=== PATIENT | female | born 1965 | race Caucasian/White ===

== ENCOUNTER → 2020-07-12 13:17 | Outpatient (CLI) | payer OTHER, SELFPAY ==
--- NOTE | ~2020-07-12 | MMUS_ITS ---
EXAMINATION: MM diagnostic omar BI w paulo, US breast BI limited HISTORY: Probably benign right breast mass TECHNIQUE: Craniocaudal, mediolateral, and mediolateral oblique 3-D tomosynthesis images of the breas ts were performed and synthetic 2-D images were generated. CAD analysis was submitted and interpreted . High resolution limited bilateral breast ultrasound was performed. COMPARISON: 07/04/2019, 11/15/2018, 05/21/2018, 05/10/2018, 05/04/2017 BREAST PARENCHYMAL COMPOSITION: There are scattered areas of fibroglandular density. FINDINGS: MAMMOGRAPHIC FINDINGS: Right breast: The previously described asymmetry in the middle third of the lower-outer breast persis ts but is less conspicuous than on prior mammograms. There has been no suspicious interval change. No suspicious mass, calcification, or architectural distortion are identified. Left breast: There is a 10 mm obscured low density mass in the anterior third of the outer breast at the 2:00 location 4 cm from the nipple. No suspicious architectural distortion or calcification are i dentified. ULTRASOUND: Right breast: There is a 5 mm x 2 mm oval, circumscribed, parallel mass with hypoechoic center and ec hogenic rim at the 12:00 location 4.5 cm from the nipple with no internal vascularity or posterior ac oustic features. This is decreased in size since the comparison examination. Left breast: There is a 7 mm x 5 mm oval, circumscribed, parallel, complex cystic and solid mass at t he 1:00 location 4 cm from the nipple with posterior acoustic enhancement and no internal vascularity with sonographic features suggestive of a cluster of microcysts. IMPRESSION: 1. Benign right breast mass and probably benign left breast mass. 2. Recommend 6 month follow-up left diagnostic mammogram and ultrasound. BI-RADS category 3, probably benign findings. Reviewed, dictated and finalized at location A. E SUPERVISOR IMPRESSION: 1. Benign right breast mass and probably benign left breast mass. 2. Recommend 6 month follow-up left diagnostic mammogram and ultrasound. BI-RADS category 3, probably benign findings.
== END ==
PROVIDERS: PCP Family Medicine; Visit Provider Obstetrics & Gynecology
DX: R92.8 Other abnormal and inconclusive findings on diagnostic imaging of breast (principal)
CPT/HCPCS: 76642; 77062; 77066; G0279

== ENCOUNTER → 2021-01-14 08:19 | Outpatient (CLI) | payer OTHER, SELFPAY ==
--- NOTE | ~2021-01-14 | MMUS_ITS ---
EXAMINATION: MM diagnostic omar LT w paulo, US breast LT limited HISTORY: Six-month follow-up for probably benign left breast mass TECHNIQUE: Craniocaudal, mediolateral, and mediolateral oblique 3-D tomosynthesis images of the left breast were performed and synthetic 2-D images were generated. CAD analysis was submitted and interpr eted. High resolution limited left breast ultrasound was performed. COMPARISON: 07/12/2020, 07/04/2019, 05/10/2018, 05/04/2017 BREAST PARENCHYMAL COMPOSITION: There are scattered areas of fibroglandular density. FINDINGS: MAMMOGRAPHIC FINDINGS: The previously described left breast mass is no longer identified. There has been no suspicious inter dagmar change. ULTRASOUND: There is a 5 mm x 3 mm oval, circumscribed, parallel, hypoechoic mass with no posterior features or i nternal vascularity at the 1:00 location 4 cm from the nipple which has decreased in size, consistent with a benign finding. IMPRESSION: 1. Cyst or clustered microcysts of the left breast with decrease in size, consistent with a benign fi nding. No mammographic or sonographic evidence of malignancy. 2. Recommend routine screening mammography, due in six months. BI-RADS Category 2: Benign finding(s). Reviewed, dictated and finalized at location A. IMPRESSION: 1. Cyst or clustered microcysts of the left breast with decrease in size, consi stent with a benign finding. No mammographic or sonographic evidence of maligna ncy. 2. Recommend routine screening mammography, due in six months. BI-RADS Category 2: Benign finding(s).
== END ==
PROVIDERS: Visit Provider Obstetrics & Gynecology
DX: R92.8 Other abnormal and inconclusive findings on diagnostic imaging of breast (principal)
CPT/HCPCS: 76642; 77061; 77065; G0279

== ENCOUNTER → 2021-06-14 12:38 | Outpatient (CLI) | payer OTHER, SELFPAY ==
--- NOTE | ~2021-06-14 | MM_ITS ---
EXAMINATION: MM screening [facility] BI w paulo HISTORY: Screening TECHNIQUE: Craniocaudal and mediolateral oblique 3-D tomosynthesis images were obtained and synthetic 2-D images were generated. CAD analysis was submitted and interpreted. COMPARISON: Comparison to multiple prior studies sequentially, with oldest reviewed study dated 04/07. BREAST PARENCHYMAL COMPOSITION: Breast composed of scattered areas of fibroglandular density. FINDINGS: There is no evidence of suspicious mass, calcification, or architectural distortion to sugg est malignancy in either breast. There has been no suspicious interval change. IMPRESSION: 1. No mammographic evidence of malignancy. 2. Recommend routine screening mammography in one year. BI-RADS Category 1: Negative Reviewed, dictated and finalized at location A. NICAL ASST
== END ==
PROVIDERS: Visit Provider Obstetrics & Gynecology
DX: Z12.31 Encounter for screening mammogram for malignant neoplasm of breast (principal)
CPT/HCPCS: 77063; 77067

== ENCOUNTER 2021-06-20 14:50 | Emergency (ER) | payer OTHER, SELFPAY ==
[2021-06-20] VITALS (19 sets, daily range): BP systolic 136–201; BP diastolic 72–97; PULSE 69–84; RESP 11–21; TEMP 36.2–37; O2SAT 94–100
--- NOTE | ~2021-06-20 | XR_ITS ---
EXAMINATION: XR chest 2V 06/20/2021 15:37 INDICATION: Hypertension. Dizziness. PROCEDURE: 2 view chest COMPARISON: No prior studies for comparison. FINDINGS: The lungs are clear. The cardiomediastinal silhouette is within normal limits. There are no pleural effusions. There is no pneumothorax suspected. There are scattered calcified granulomas of the lung parenchyma. IMPRESSION: 1: NO ACUTE CARDIOPULMONARY DISEASE. Reviewed, dictated and finalized at location A. STANT NURSE MANAGER
--- NOTE | ~2021-06-20 | CT_ITS ---
EXAMINATION: CT brain wo con DATE: 06/20/2021 17:06 INDICATION: Dizziness. Hypertension. TECHNIQUE: Computed tomography (CT) of the head was performed without intravenous contrast. The dose- length product was 605.33 mGy-cm. Automated exposure control and iterative reconstruction technique w ere employed. COMPARISON: No prior studies for comparison. FINDINGS: There is focal area of hyperdensity just to the right of the interhemispheric fissure, axia l image 37, consistent with hemorrhage which may be parenchymal or focal subarachnoid. No significant mass effect. No ventriculomegaly or midline shift. No ventriculomegaly or midline shift. Basilar cis terns are patent. IMPRESSION: 1. Focal hyperdensity right parietal lobe just lateral to the interhemispheric fissure, consistent wi th hemorrhage, most likely parenchymal or subarachnoid. Dr. Dheeraj Valenzuela discussed with Dr. Nicolle Rojo MD at 06/20/2021 17:17 CORRESPONDENCE ANALYST. Reviewed, dictated and finalized at location A. ESPONDENCE ANALYST IMPRESSION: 1. Focal hyperdensity right parietal lobe just lateral to the interhemispheric fissure, consistent with hemorrhage, most likely parenchymal or subarachnoid. Dr. Dheeraj Valenzuela discussed with Dr. Nicolle Rojo MD at 06/20/2021 17:17 CORRESPONDENCE ANALYST.
--- NOTE | 2021-06-20 14:51 | ECG_ITS ---
Measurements Intervals [place] Rate: 74 P: 19 GA: 163 QRS: -40 QRSD: 89 T: 18 QT: 389 QTc: 433 Interpretive Statements SINUS RHYTHM LEFT AXIS DEVIATION POOR R WAVE PROGRESSION, ANTERIOR LEADS BORDERLINE T WAVE ABNORMALITY- ANTERIOR LEADS BORDERLINE ECG Electronically Signed On 06-20-2021 15:50:58 DIGESTION OPERATOR by Nam Avitia D.O.
[2021-06-20 15:13] LABS: Basophils Absolute Auto 0.1 K/mm3 (0.0-0.1); Basophils Percent Auto 0.9 % (0.2-1.2); Eosinophils Absolute Auto 0.1 K/mm3 (0-0.3); Eosinophils Percent Auto 1.7 % (0-4.4); Hematocrit 45.7 % (37.0-47.0); Hemoglobin 15.4 g/dL (12.0-15.0); Immature Granulocyte Absolute 0.02 K/mm3 (0.00-0.031); Immature Granulocyte Percent A 0.2 % (0-0.5); Lymphocytes Absolute Auto 1.61 K/mm3 (0.9-3.2); Lymphocytes Percent Auto 19.8 % (18.3-44.2); Mean Corpuscular HGB Conc 33.7 g/dl (32-36); Mean Corpuscular Hemoglobin 30.3 pg (26-34); Mean Platelet Volume 10.7 fl (7.4-10.4); Monocytes Absolute Auto 0.4 K/mm3 (0.1-0.6); Monocytes Percent Auto 4.7 % (2.6-8.5); Neutrophils Absolute Auto 5.9 K/mm3 (1.3-6.7); Neutrophils Percent Auto 72.7 % (45.5-73.1); Platelet Count Result 305 k/mm3 (150-375); Red Blood Count 5.08 M/mm3 (4.2-5.4); Red Cell Distribution Width 12.9 % (11.5-14.5); White Blood Count 8.1 K/mm3 (4.5-10.0)
[2021-06-20 15:22] LABS: Prothrombin Time 13.5 Seconds (11.1-14.7)
[2021-06-20 15:23] LABS: Alanine Aminotransferase 20 U/L (4-35); Albumin Level 5.1 g/dL (3.5-5.1); Alkaline Phosphatase 73 U/L (38-126); Anion Gap 8 mmol/L (8-16); Aspartate Amino Transferase 27 U/L (14-36); Bilirubin,Total 0.6 mg/dL (0.2-1.3); Blood Urea Nitrogen 13 mg/dL (7-17); Calcium 9.7 mg/dL (8.4-10.2); Carbon Dioxide 27 mmol/L (22-30); Chloride 103 mmol/L (98-107); Estimated CRCL calculation 93 ml/min; Estimated Glomerular Filt Rate > 60; Glucose 115 mg/dL (65-110); Lipase 64 U/L (23-300); Potassium 4.1 mmol/L (3.4-5.0); Sodium 138 mmol/L (137-145)
[2021-06-20 15:33] LABS: Troponin I < 0.012 ng/mL (0.000-0.034)
--- NOTE | 2021-06-20 16:07 | ED.DIZZY ---
HPI - Dizziness General Chief Complaint: Dizziness Stated Complaint: high blood pressure Time Seen by Provider: 06/20/21 16:06 Source: patient Mode of arrival: ambulatory Limitations: no limitations History of Present Illness HPI Narrative: The patient is a 56 yo female with a history of HTN, HLD, presenting for evaluation of dizziness. Patient states dizziness began around 10 AM this morning and then resolved. Patient states the dizziness with nausea then recurred around 1 PM. Patient states she was seen by her PCP on Thursday of this week, with elevated systolic blood pressure. Patient states that this morning, she was feeling unsteady and dizzy. She reported epigastric and chest pain with radiation to the left jaw. Patient reports bilateral arm tingling. Pt denies radiation of chest pain. She reports nausea. Denies dyspnea. No neck pain, back pain, or flank pain. No acute onset of ripping/tearing pain. Dizziness and chest pain resolves with rest. No recent surgery or recent travel. Pt states that she eats and her symptoms worsen. Pt taking doxycyline for sinusitis she reports. Also states that she has a history of vertigo but this feels different than her typical vertigo. Related Data Home Medications Medication Instructions Recorded Confirmed meclizine 25 mg tablet 25 mg PO QID tablet 06/17/21 Allergies Allergy/AdvReac Type Severity Reaction Status Date / Time Penicillins Allergy Intermediate HIVES, RASH Verified 06/20/21 16:20 Sulfa (Sulfonamide Allergy Intermediate HIVES, RASH Verified 06/20/21 16:20 Antibiotics) tetracycline Allergy Intermediate HIVES, RASH Verified 06/20/21 16:20 blue dye Allergy Unknown RASH Verified 06/20/21 16:20 hydrocodone Allergy Unknown RASH, HIVES Verified 06/20/21 16:20 oxycodone Allergy Unknown RASH Verified 06/20/21 16:20 tramadol Allergy Rash Verified 06/20/21 16:20 Review of Systems Review of Systems: CONSTITUTIONAL: Denies fever, chills, or sweats. EYES: Denies visual changes, redness, or discharge. ENT: Denies rhinorrhea, congestion, sore throat, or otalgia. CARDIOVASCULAR: Reports chest pain, she is reporting palpitations RESPIRATORY: Denies cough or dyspnea. GASTROINTESTINAL: Reports epigastric pain, reports nausea GENITOURINARY: Denies dysuria or hematuria. SKIN: Denies rash or itching. MUSCULOSKELETAL: Denies back pain, joint pain, or myalgia. NEUROLOGIC: Denies headache, reports bilateral arm tingling, reports dizziness PMFSH Past Medical History Medical History Arthritis Asthma Trigger finger right second and third digits Surgical History Surgical History H/O dilation and curettage 1998 H/O hand surgery left, 2013, Dr. Jackson H/O: hysterectomy (~2017) History of hip replacement right, 2017, Dr. Jackson Left, 2018, Dr. 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 EYES: 2+ PERRLA and EOMI. ENT: Nares clear, no rhinorrhea or epistaxis. Mucous membranes moist. NECK: Supple. CHEST: No respiratory distress, breathing even and non labored HEART: Regular rate, sinus rhythm ABDOMEN:Non distended, non tender EXTREMITIES: Normal range of motion. No edema. SKIN: Warm,
[2021-06-20 17:45] LABS: Add Urine Microscopic? YES; Appearance Urine Cloudy (Clear); Bacteria Urine Trace /hpf; Bilirubin Urine Negative (Negative); Blood Urine Negative (Negative); Color Urine Yellow (Yellow); Glucose Urine UA Negative (Negative); Ketones Urine Negative (Negative); Leukocyte Esterase Ur Negative LEU/UL (Negative); Mucus Urine Rare /lpf; Nitrate Urine Negative (Negative); Protein Urine Negative (Negative); Specific Grav Ur 1.011 (1.001-1.035); Squamous Epithelial Cell Urine Few /hpf (Few); Urobilinogen Urine Negative mg/dL (<2.0); WBC Urine 0-3 /hpf
[2021-06-20] MEDS: SODIUM CHLORIDE 0.9% IV 1,000 ML 999 ML IV CONT (17:49)
[2021-06-20] MEDS: ONDANSETRON INJ 4 MG/2 ML VIAL IV PUSH (17:50)
[2021-06-20] MEDS: MECLIZINE HCL 25 MG TABLET PO (17:50)
--- NOTE | 2021-06-20 18:01 | PC.NURSE ---
report called to johnny Ramirez RN at [facility] ER
--- NOTE | 2021-06-20 18:08 | PC.NURSE ---
called lab to push troponin to the front of line, attempting to have results prior to EMS discharge. Pt remains oriented x4, no stroke deficits noted.
[2021-06-20 18:31] LABS: Troponin I < 0.012 ng/mL (0.000-0.034)
== END 2021-06-20 18:20 | disposition short-term general hospital (02) ==
PROVIDERS: Emergency Medicine; Emergency Provider Emergency Medicine; PCP Internal Medicine
DX: I61.8 Other nontraumatic intracerebral hemorrhage (principal); R42 Dizziness and giddiness; R07.9 Chest pain, unspecified; I10 Essential (primary) hypertension; E78.5 Hyperlipidemia, unspecified
CPT/HCPCS: 36415; 70450; 71046; 80053; 81001; 83690; 84484; 85025; 85610; 85730; 93005; 96361; 96374; 99291; A9270; J2405; J7030

== ENCOUNTER 2021-11-21 08:11 | Outpatient (CLI) | payer OTHER, SELFPAY ==
--- NOTE | 2021-11-25 11:41 | WPDHOMESLEEP ---
Sleep Study - Home Unattended Date of Study: 11/21/21 Ordering Provider: Kyra Rojas NP Interpreting Provider: Keren Don, DO Home Sleep Study Type: Watch PAT Height: 1.69 m Weight: 115.666 kg Body Mass Index: 40.5 Neck Circumference (inches): 15 [place]: 5 Reason for Sleep Study Multiple nighttime awakenings. Sleep History The patient is a 56-year-old female with hypertension, asthma and anxiety that had a sleep study ordered by her primary care for evaluation multiple nighttime awakenings. Patient denies awakening from sleep short of breath. She denies awakening at night with heartburn, belching or cough. She occasionally snores but is rarely loudly enough that others complain. She constantly has trouble sleeping when she has a cold. She occasionally wakes up gasping for air throughout the night. She occasionally has breathing problems at night observed by herself or others. She denies sweating excessively at night. She constantly has heart palpitations or irregular heartbeats during the night. She denies falling asleep during the day and while driving. She denies sleep paralysis and cataplexy. She denies having trouble at school or work due to sleepiness. She occasionally experiences vivid dreamlike scenes upon awakening or falling asleep. She frequently feels afraid of going to sleep. He occasionally has nightmares. She denies remembering her dreams. He rarely has thoughts racing through her mind. She feels he frequently has he occasionally has tension. She occasionally notices parts of her body jerk. She denies kicking during the night. She rarely has crawling and aching feelings in her legs as well as leg pain during the night. She denies grinding her teeth during sleep but occasionally awakens with morning jaw pain. She is constantly bothered by pain during the day and frequently awakened by pain during the night. She frequently wakes up feeling stiff in the morning. She constantly wakes up with sore achy muscles. She occasionally wakes with pain in the neck, spine and other joints. She goes to bed at 10:00 p.m. on both weekdays and weekends. It takes her over an hour to fall asleep. She wakes up 3 times throughout the night to urinate. She is usually able to fall back asleep immediately. She wakes up at 7:00 a.m. on both weekdays and weekends. She typically gets 6-7 hours of sleep per night. She will stay in bed for a few minutes after waking up in the morning. She currently lives with her in 21-year-old daughter. She does not consume any caffeinated beverages within 2 hours of bedtime. She does not engage in physical exercise before bedtime. She will watch television before falling asleep. She does not take naps in the afternoon or the evening. She will drink had 1-2 caffeinated beverages throughout the day. She will drink 1 alcoholic beverage per day. She denies tobacco and recreational drug use. [facility] Past Medical History Medical History (Updated 11/25/21 @ 11:53 by Keren Don DO) Arthritis Asthma ELISABETH (obstructive sleep apnea) Trigger finger right second and third digits Surgical History Surgical History H/O dilation and curettage 1998 H/O hand surgery left, 2013, Dr. Jackson H/O: hysterectomy (~2017) History of hip replacement right, 2017, Dr. Jackson Left, 2018, Dr. 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
[2021-11-25 11:48] VITALS: BMI 40.5
== END 2021-11-22 14:20 | disposition home or self-care (01) ==
LOC: ANHCSM 08:12
PROVIDERS: PCP Internal Medicine; Visit Provider Nurse Practitioner
DX: G47.00 Insomnia, unspecified (principal); G47.33 Obstructive sleep apnea (adult) (pediatric)
CPT/HCPCS: 95800

== ENCOUNTER → 2022-06-18 14:16 | Outpatient (CLI) | payer OTHER, SELFPAY ==
--- NOTE | ~2022-06-18 | MM_ITS ---
EXAMINATION: MM screening omar BI w paulo HISTORY: Screening TECHNIQUE: Craniocaudal and mediolateral oblique 3-D tomosynthesis images were obtained and synthetic 2-D images were generated. CAD analysis was submitted and interpreted. COMPARISON: Comparison to multiple prior studies sequentially, with oldest reviewed study dated 11/2017. BREAST PARENCHYMAL COMPOSITION: There are scattered areas of fibroglandular density. FINDINGS: There is no evidence of suspicious mass, calcification, or architectural distortion to sugg est malignancy in either breast. There has been no suspicious interval change. IMPRESSION: 1. No mammographic evidence of malignancy. 2. Recommend routine screening mammography in one year. BI-RADS Category 1: Negative Reviewed, dictated and finalized at location B. INE LOUNGE RECEPTIONIST
== END ==
PROVIDERS: PCP Internal Medicine; Visit Provider Obstetrics & Gynecology
DX: Z12.31 Encounter for screening mammogram for malignant neoplasm of breast (principal)
CPT/HCPCS: 77063; 77067

== ENCOUNTER 2022-08-04 09:59 | Outpatient (CLI) | payer OTHER, SELFPAY ==
[2022-08-04 18:43] LABS: Basophils Absolute Auto 0.1 K/mm3 (0.0-0.1); Basophils Percent Auto 1.2 % (0.2-1.2); Eosinophils Absolute Auto 0.3 K/mm3 (0-0.3); Hematocrit 43.2 % (37.0-47.0); Hemoglobin 13.9 g/dL (12.0-15.0); Immature Granulocyte Absolute 0.02 K/mm3 (0.00-0.031); Immature Granulocyte Percent A 0.3 % (0-0.5); Lymphocytes Absolute Auto 1.92 K/mm3 (0.9-3.2); Lymphocytes Percent Auto 29.4 % (18.3-44.2); Mean Corpuscular HGB Conc 32.2 g/dl (32-36); Mean Corpuscular Hemoglobin 30.1 pg (26-34); Mean Corpuscular Volume 93.5 fl (80-100); Mean Platelet Volume 12.1 fl (7.4-10.4); Monocytes Absolute Auto 0.4 K/mm3 (0.1-0.6); Monocytes Percent Auto 6.7 % (2.6-8.5); Neutrophils Absolute Auto 3.8 K/mm3 (1.3-6.7); Neutrophils Percent Auto 58.4 % (45.5-73.1); Platelet Count Result 252 k/mm3 (150-375); Red Blood Count 4.62 M/mm3 (4.2-5.4); Red Cell Distribution Width 13.8 % (11.5-14.5); White Blood Count 6.5 K/mm3 (4.5-10.0)
[2022-08-04 19:03] LABS: LDL Cholesterol Direct 133 mg/dL
[2022-08-04 19:41] LABS: Alanine Aminotransferase 18 U/L (6-35); Albumin Level 4.2 g/dL (3.5-5.1); Alkaline Phosphatase 67 U/L (38-126); Anion Gap 7 mmol/L (8-16); Aspartate Amino Transferase 21 U/L (14-36); Bilirubin,Total 0.7 mg/dL (0.2-1.3); Blood Urea Nitrogen 12 mg/dL (7-17); Calcium 9.3 mg/dL (8.4-10.2); Carbon Dioxide 30 mmol/L (22-30); Chloride 104 mmol/L (98-107); Cholesterol 238 mg/dL (0-200); Estimated Glomerular Filt Rate > 60; Glucose 81 mg/dL (65-110); HDL Direct 38 mg/dL; Potassium 4.3 mmol/L (3.4-5.0); Sodium 141 mmol/L (137-145); Triglycerides 178 mg/dL (<150)
== END 2022-08-04 10:00 | disposition home or self-care (01) ==
LOC: ANHGOSHLAB 10:00
PROVIDERS: PCP Internal Medicine; Visit Provider Nurse Practitioner
DX: Z13.29 Encounter for screening for other suspected endocrine disorder (principal); Z13.220 Encounter for screening for lipoid disorders
CPT/HCPCS: 36415; 80053; 80061; 85025

== ENCOUNTER → 2022-08-04 10:37 | Outpatient (CLI) | payer OTHER, SELFPAY ==
--- NOTE | ~2022-08-04 | XR_ITS ---
EXAMINATION:XR_[id number]_CR DATE: 08/04/2022 11:35 INDICATION: Dizziness and neck stiffness TECHNIQUE: AP, lateral, and odontoid views of the cervical spine are provided. COMPARISON: None FINDINGS: Alignment is normal. The odontoid process is intact. No fracture is identified. There is mi ld loss of intervertebral disc space height at C5-6 and C6-7. Small degenerative osteophytes project from the anterior endplates of multiple vertebral bodies. The vertebral body heights are normal. Ther e is moderate bilateral facet joint osteoarthritis at C5-6. Prevertebral soft tissues are normal. IMPRESSION: 1. Mild cervical spondylosis without acute findings. Reviewed, dictated and finalized at location B. ENGINEER
== END ==
PROVIDERS: PCP Internal Medicine; Visit Provider Nurse Practitioner
DX: H81.10 Benign paroxysmal vertigo, unspecified ear (principal); R26.89 Other abnormalities of gait and mobility; M47.892 Other spondylosis, cervical region
CPT/HCPCS: 72040

== ENCOUNTER → 2022-09-10 12:31 | Outpatient (CLI) | payer OTHER, SELFPAY ==
--- NOTE | ~2022-09-10 | MR_ITS ---
EXAMINATION: MR cervical spine wo/w con DATE: 09/10/2022 13:29 INDICATION: Dizziness. Neck stiffness. TECHNIQUE: Magnetic resonance imaging (MRI) of the cervical spine was performed without and with 20 m L MultiHance intravenous contrast. COMPARISON: Cervical spine radiographs 08/04/2022 FINDINGS: Bone alignment is normal. There is mild chronic anterior wedging of C5 vertebral body. Ther e is moderately decreased disc height at C5-C6 and mildly decreased disc height at C6-C7. The spinal cord signal intensity is normal. The following disc levels are specifically discussed: C2-C3: The disc does not extend beyond the endplate margin. There is no uncovertebral joint osteoarth ritis. There is mild bilateral facet joint osteoarthritis. There is no neural foraminal stenosis. The re is no central canal stenosis. C3-C4: There is a central protrusion. There is mild bilateral uncovertebral joint osteoarthritis. The re is mild right and severe left facet joint osteoarthritis. There is mild left neural foraminal sten osis. There is mild central canal stenosis. C4-C5: The disc is mildly bulging. There is no uncovertebral joint osteoarthritis. There is no facet joint osteoarthritis. There is no neural foraminal stenosis. There is mild central canal stenosis. C5-C6: The disc is bulging. There is severe bilateral uncovertebral joint osteoarthritis. There is no facet joint osteoarthritis. There is moderate bilateral neural foraminal stenosis. There is mild shahana tral canal stenosis. C6-C7: There is a central extrusion. There is mild bilateral uncovertebral joint osteoarthritis. Ther e is no facet joint osteoarthritis. There is no neural foraminal stenosis. There is mild central kelly l stenosis. C7-T1: The disc does not extend beyond the endplate margin. There is no uncovertebral joint osteoarth ritis. There is severe bilateral facet joint osteoarthritis. There is mild bilateral neural foraminal stenosis. There is no central canal stenosis. IMPRESSION: 1. Moderate cervical spondylosis. Reviewed, dictated and finalized at location A. ICAL SECURITY ENGINEER
== END ==
PROVIDERS: PCP Internal Medicine; Visit Provider Nurse Practitioner
DX: R42 Dizziness and giddiness (principal); M47.892 Other spondylosis, cervical region
CPT/HCPCS: 72156; A9577

== ENCOUNTER 2022-12-15 11:21 | Emergency (ER) | payer OTHER, SELFPAY ==
[2022-12-15 11:34] VITALS: BP 150/87; PULSE 70; RESP 16; TEMP 37.2; O2SAT 100
[2022-12-15 11:37] VITALS: BP 150/87; PULSE 70; RESP 16; TEMP 37.2; O2SAT 100
--- NOTE | 2022-12-15 11:40 | ED.GENADULT ---
HPI - General Adult General Chief complaint: Dizziness Stated complaint: dizziness,rt foot numb,pinch nerve rt shoulder Time Seen by Provider: 12/15/22 11:40 Source: patient, RN notes reviewed and old records reviewed Mode of arrival: ambulatory Limitations: no limitations History of Present Illness HPI narrative: 57-year-old female presents to the [facility] with complaints of dizziness, right foot numbness and a pinched nerve in the right shoulder, states that started after they [facility] a [facility]. States the injection was done on , describes it as being very painful since then had some numbness or tingling in her legs as well as her arm. States the dizziness is her normal has been going on for 2 years they thought it was due to the pinched nerves in her neck. Patient was told by the pain clinic to follow-up with primary to care to provider and get another MRI. Unable to get in with the primary care provider today, states that she called. patient walked in with a normal gait denies any shortness of breath, abdominal pain. Denies any loss retention of bowel or bladder. No saddle anesthesia. Onset (ago): day(s) (4) Related Data Home Medications Medication Instructions Recorded Confirmed gabapentin 100 mg capsule 100 mg PO QHS 08/04/22 12/15/22 alprazolam 0.25 mg tablet 0.25 mg PO DIRECTED 12/15/22 12/15/22 Allergies Allergy/AdvReac Type Severity Reaction Status Date / Time blue dye Allergy Unknown RASH Verified 12/15/22 11:35 hydrocodone Allergy Unknown RASH, HIVES Verified 12/15/22 11:35 oxycodone Allergy Unknown RASH Verified 12/15/22 11:35 Penicillins Allergy Unknown Skin Verified 12/15/22 11:35 Reaction Sulfa (Sulfonamide Allergy Unknown Skin Verified 12/15/22 11:35 Antibiotics) Reaction tetracycline Allergy Unknown Skin Verified 12/15/22 11:35 Reaction tramadol Allergy Rash Verified 12/15/22 11:35 Review of Systems Review of Systems: All systems reviewed & are unremarkable except as noted in HPI and below Constitutional: Constitutional: Reports no additional constitutional complaints Eyes: Eyes: Reports no additional eye complaints ENT: Reports system reviewed and no additional complaints, except as documented Cardiovascular: Cardiovascular: Reports no additional cardiovascular complaints, Denies chest pain and Denies dyspnea Respiratory: Respiratory: Reports no additional respiratory complaints, Denies chest congestion, Denies cough and Denies dyspnea Gastrointestinal: Gastrointestinal: Reports no additional gastrointestinal complaints, Denies abdominal pain, Denies nausea and Denies vomiting Musculoskeletal: Musculoskeletal: Reports no additional musculoskeletal complaints Integumentary/Breasts: Skin/Breast: Reports system reviewed and no additional complaints, except as docu Neurologic: Reports as per HPI Psychiatric: Psychiatric: Reports no additional psychiatric complaints Allergic/Immunologic: Allergic/Immunologic: Reports no additional allergic/immunologic complaints [facility] Past Medical History Medical History Arthritis Asthma ELISABETH (obstructive sleep apnea) Trigger finger right second and third digits Surgical History Surgical History H/O dilation and curettage 1998 H/O hand surgery left, 2013, Dr. Jackson H/O: hysterectomy (~2017) History of hip replacement right, 2017, Dr. Jackson Left, 2018, Dr. Jackson Family History Family History Father Hypertension Family history of elevated blood lipids Family history of osteoarthritis Mother Hypertension Family history of allergic disorder Asthma Patient's mother is in good health Sibling Asthma Family history of allergic disorder Hypertension Patient's sister is in good health Father Hypertension
== END 2022-12-15 11:58 | disposition home or self-care (01) ==
PROVIDERS: Emergency Provider Nurse Practitioner; PCP Internal Medicine
DX: R42 Dizziness and giddiness (principal); M19.90 Unspecified osteoarthritis, unspecified site; J45.909 Unspecified asthma, uncomplicated; Z96.643 Presence of artificial hip joint, bilateral
CPT/HCPCS: 99213; G0463

== ENCOUNTER → 2023-07-13 10:04 | Outpatient (CLI) | payer OTHER, SELFPAY ==
--- NOTE | ~2023-07-13 | XR_ITS ---
Lumbosacral Spine: AP and lateral views Clinical History: radiculopathy Findings: The normal lordotic curve is maintained. The vertebral bodies and posterior elements are i ntact. The intervertebral disc spaces are preserved. There is mild to moderate facet arthropathy thr oughout the lumbar spine. The sacroiliac joints are normally outlined. Bilateral hip arthroplasties a re present. Impression: Facet arthropathy, as above. Reviewed, dictated and finalized at location M. PRESSER Impression: Facet arthropathy, as above.
== END ==
PROVIDERS: PCP Nurse Practitioner; Visit Provider Nurse Practitioner
DX: M54.16 Radiculopathy, lumbar region (principal)
CPT/HCPCS: 72100

== ENCOUNTER 2023-08-11 13:50 | Outpatient (CLI) | payer OTHER, SELFPAY ==
--- NOTE | 2023-08-11 14:00 | NEURO_ITS ---
Impression: # Complains of numbness of right lower extremity. No history of diabetes or back surgery. # Normal Nerve Conduction Study including F-waves. # Normal needle/EMG exam. # Clinical correlation recommended; Higher involvement cannot be ruled out. Nerve Conduction Studies Anti Sensory Summary Table Stim Site NR Peak (ms) P-T Amp (?V) Site1 Site2 Delta-P (ms) Dist (cm) Rashaad (m/s) Right Saphenous Anti Sensory (Ant Med Mall) 14cm 3.5 18.9 14cm Ant Med Mall 3.5 0.0 Right Sup Fibular Anti Sensory (Ant Lat Mall) 14 cm 3.5 14.0 14 cm Ant Lat Mall 3.5 16.0 46 Right Sural Anti Sensory (Lat Mall) Calf 3.6 19.5 Calf Lat Mall 3.6 16.0 44 Motor Summary Table Stim Site NR Onset (ms) O-P Amp (mV) Site1 Site2 Delta-0 (ms) Dist (cm) Rashaad (m/s) Right Peroneal Motor (Vastus Med) Ankle 3.2 4.0 Popit Ankle 8.4 42.0 50 Popit 11.6 4.3 Right Tibial Motor (Abd Ni Brev) Ankle 3.8 0.8 Knee Ankle 8.9 42.0 47 Knee 12.7 1.6 F Wave Studies NR F-Lat (ms) L-R F-Lat (ms) Right Peroneal (Mrkrs) (EDB) 46.72 Right Tibial (Mrkrs) (Abd Hallucis) 47.57 EMG Side Muscle Nerve Root Ins Act Fibs Amp Dur Recrt Comment Right AntTibialis Dp Br Fibular L4-5 Nml Nml Nml Nml Nml Right Gastroc Tibial S1-2 Nml Nml Nml Nml Nml Right Fibularis Long Sup Br Fibular L5-S1 Nml Nml Nml Nml Nml Right Flex Dig Long Tibial L5-S2 Nml Nml Nml Nml Nml Right Ext Dig Brev Dp Br Fibular L5, S1 Nml Nml Nml Nml Nml MTDD
== END 2023-08-11 13:51 | disposition home or self-care (01) ==
LOC: ANHNEURO 13:51
PROVIDERS: PCP Nurse Practitioner; Visit Provider Nurse Practitioner
DX: M54.17 Radiculopathy, lumbosacral region (principal)
CPT/HCPCS: 95886; 95909

== ENCOUNTER → 2023-09-03 15:08 | Outpatient (CLI) | payer OTHER, SELFPAY ==
--- NOTE | ~2023-09-03 | MM_ITS ---
EXAMINATION: MM screening omar BI w paulo HISTORY: Screening TECHNIQUE: Craniocaudal and mediolateral oblique 3-D tomosynthesis images were obtained and synthetic 2-D images were generated. CAD analysis was submitted and interpreted. COMPARISON: Comparison to multiple prior studies sequentially, with oldest reviewed study dated 06/07. BREAST PARENCHYMAL COMPOSITION: There are scattered areas of fibroglandular density. FINDINGS: There is no evidence of suspicious mass, calcification, or architectural distortion to sugg est malignancy in either breast. There has been no suspicious interval change. IMPRESSION: 1. No mammographic evidence of malignancy. 2. Recommend routine screening mammography in one year. BI-RADS Category 1: Negative Reviewed, dictated and finalized at location A. 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
== END ==
PROVIDERS: PCP Obstetrics & Gynecology; Visit Provider Obstetrics & Gynecology
DX: Z12.31 Encounter for screening mammogram for malignant neoplasm of breast (principal)
CPT/HCPCS: 77063; 77067

== ENCOUNTER 2023-10-07 14:27 | Outpatient (CLI) | payer OTHER, SELFPAY ==
--- NOTE | ~2023-10-07 | XR_ITS ---
XR chest 2V DATE: 10/07/2023 14:38 INDICATION: Cough, congestion for 2 weeks. History of asthma. Nonsmoker. TECHNIQUE: PA and lateral views COMPARISON: 06/20/2021 2 view chest FINDINGS: Heart size is within upper normal range. No hilar or mediastinal enlargement. No pulmonary infiltrate or consolidation, pleural effusion or pulmonary vascular congestion or pneumothorax. There is degenerative spurring of the thoracic spine. IMPRESSION: No active pulmonary disease Reviewed, dictated and finalized at location B. IMPRESSION: No active pulmonary disease
== END 2023-10-07 14:28 ==
PROVIDERS: PCP Internal Medicine; Visit Provider Nurse Practitioner
DX: R05.9 Cough, unspecified (principal)
CPT/HCPCS: 71046

== ENCOUNTER 2023-10-20 11:44 | Outpatient (CLI) | payer OTHER, SELFPAY ==
--- NOTE | ~2023-10-20 | CT_ITS ---
Clinical Indication: Shortness of breath CT Scan of the Chest with Contrast: Technique: Contiguous sections were acquired throughout the chest after intravenous administration of 75 cc of Omnipaque 350. Dose reduction technique was used on this scan by utilizing automated exposu re control and iterative reconstruction technique. The dose-length product (DLP) was 696.12 mGy-cm. Findings: There is no evidence of any significant mediastinal, hilar or axillary lymphadenopathy. There is no f illing defect in the pulmonary arterial tree to suggest pulmonary embolus. There is no evidence of ao rtic dissection or aneurysm. There is no evidence of pleural or pericardial effusion. The lungs are clear. No pulmonary nodules or infiltrates are noted. Images through the upper abdomen reveal no abnormalities. Impression: No evidence of pulmonary embolus, aortic dissection, or aortic aneurysm. Clear lungs. Reviewed, dictated and finalized at [facility]. Impression: No evidence of pulmonary embolus, aortic dissection, or aortic aneurysm. Clear lungs.
[2023-10-20 12:00] LABS: Estimated Glomerular Filt Rate > 60
== END 2023-10-20 11:45 ==
LOC: MICIMG 11:45
PROVIDERS: PCP Nurse Practitioner; Visit Provider Nurse Practitioner
DX: R06.02 Shortness of breath (principal); R05.9 Cough, unspecified
CPT/HCPCS: 71260; Q9967

== ENCOUNTER 2023-10-28 10:12 | Outpatient (CLI) | payer OTHER, SELFPAY ==
--- NOTE | 2023-10-28 17:09 | WPDPFTINT ---
PFT Procedure Performed PFT Procedure Performed Spirometry with Pre/Post Bronchodilator Plethysmography (Lung Vol) Diffusing Cap (DLCO) Flow Vol Loop PFT Interpretation This is a pulmonary function test with pre and post-bronchodilator spirometry, plethysmography and diffusing capacity. The test was performed and results interpreted in accordance with the 2019 and 2005 ATS/ERS Task Force guidelines respectively using the Global Lung Function Initiative-2012 reference equations. Patient demonstrated good effort and cooperation. Reproducibility criteria were met. The quality of the pre bronchodilator spirometry maneuver was Grade A and post bronchodilator spirometry maneuver was Grade A. Findings: Spirometry: There is decreased maximal expiratory airflow at all lung volumes with concave expiratory flow tracing. The contour the inspiratory flow tracing is normal. The pre bronchodilator FVC is 2.98 L, 86% predicted. The pre bronchodilator FEV1 is 1.79 L, 65% predicted. The pre bronchodilator FEV1: FVC ratio 60%. post bronchodilator FVC is 2.98 L, representing no change. The post bronchodilator FEV1 is 1.90 L, representing a 6% increase. The post bronchodilator FEV1: FVC ratio 64%. Plethysmography: The total lung capacity is 4.54 L, 85% predicted. The functional residual capacity is 2.44 L, 80% predicted. The residual volume is 1.56 L, 76% predicted. Diffusing capacity: The diffusing capacity unadjusted for hemoglobin and carboxyhemoglobin is 19.5, 86% predicted. The diffusing capacity adjusted for alveolar volume is 4.90, 112% predicted. Impression: There is a moderate obstructive abnormality. There is no significant improvement after inhaling a single dose of albuterol. The lung volumes are normal. The diffusing capacity is normal. There are no prior studies for comparison
== END 2023-10-28 10:13 | disposition home or self-care (01) ==
LOC: ANHPFT 10:14
PROVIDERS: PCP Nurse Practitioner; Visit Provider Nurse Practitioner
DX: R06.02 Shortness of breath (principal); J45.909 Unspecified asthma, uncomplicated; R94.2 Abnormal results of pulmonary function studies
CPT/HCPCS: 94060; 94726; 94729

== ENCOUNTER 2023-12-21 09:43 | Outpatient (CLI) | payer OTHER, SELFPAY ==
--- NOTE | ~2023-12-21 | MR_ITS ---
EXAMINATION: MR cervical spine wo con DATE: 12/21/2023 11:02 INDICATION: Neck pain after epidural injection. TECHNIQUE: Magnetic resonance imaging (MRI) of the cervical spine was performed without intravenous c ontrast. COMPARISON: Cervical spine MRI 09/10/2022 FINDINGS: There is mild kyphosis of cervical spine. Vertebral body heights are normal. There is mildl y decreased disc height at C5-C6 and moderately decreased disc height at C6-C7. There is increased T2 -weighted signal intensity in the spinal cord on the left from C7 to at least T1, consistent with mye lomalacia. The following disc levels are specifically discussed: C2-C3: The disc does not extend beyond the endplate margin. There is no uncovertebral joint osteoarth ritis. There is mild bilateral facet joint osteoarthritis. There is no neural foraminal stenosis. The re is no central canal stenosis. C3-C4: The disc does not extend beyond the endplate margin. There is mild bilateral uncovertebral ellis nt osteoarthritis. There is mild right and severe left facet joint osteoarthritis. There is mild bila teral neural foraminal stenosis. There is no central canal stenosis. C4-C5: The disc does not extend beyond the endplate margin. There is mild left uncovertebral joint os teoarthritis. There is no facet joint osteoarthritis. There is no neural foraminal stenosis. There is no central canal stenosis. C5-C6: The disc is bulging. There is severe bilateral uncovertebral joint osteoarthritis. There is no facet joint osteoarthritis. There is mild bilateral neural foraminal stenosis. There is mild central canal stenosis. C6-C7: The disc is bulging. There is mild bilateral uncovertebral joint osteoarthritis. There is mild bilateral facet joint osteoarthritis. There is mild bilateral neural foraminal stenosis. There is mi ld central canal stenosis. C7-T1: The disc does not extend beyond the endplate margin. There is no uncovertebral joint osteoarth ritis. There is severe bilateral facet joint osteoarthritis. There is mild bilateral neural foraminal stenosis. There is no central canal stenosis. IMPRESSION: 1. Myelomalacia from C7 to at least T1, new from 09/10/2022. 2. Moderate cervical spondylosis, stable from 09/10/2022. Reviewed, dictated and finalized at location E.
--- NOTE | ~2023-12-21 | MR_ITS ---
EXAMINATION: MR lumbar spine wo con DATE: 12/21/2023 11:02 INDICATION: Right lower extremity burning pain. TECHNIQUE: Magnetic resonance imaging (MRI) of the lumbar spine was performed without intravenous con trast. Sequences included sagittal T2-weighted FSE, sagittal T2-weighted FS FSE, sagittal T1-weighted FSE, and axial T2-weighted FSE. COMPARISON: None FINDINGS: There is 9 degrees dextrocurvature of lumbar spine. There is 3 mm retrolisthesis of L2 on L 3 and L3 on L4. There is mild chronic anterior wedging of T11 and T12 vertebral bodies. There is raphael rely decreased disc height at L3-L4, mildly decreased disc height at L4-L5, and severely decreased di sc height at L5-S1. The distal spinal cord signal intensity is normal. The conus medullaris is at L1. The following disc levels are specifically discussed: L1-L2: The disc is bulging. There is severe right and moderate left facet joint osteoarthritis. There is mild bilateral neural foraminal stenosis. There is mild central canal stenosis. L2-L3: The disc is bulging with superimposed central extrusion. There is severe right and moderate le ft facet joint osteoarthritis. There is mild bilateral neural foraminal stenosis. There is mild centr al canal stenosis. L3-L4: The disc is bulging and has an annular fissure. There is mild right and severe left facet join t osteoarthritis. There is mild right and moderate left neural foraminal stenosis. There is mild cent ral canal stenosis. L4-L5: The disc is bulging and has an annular fissure. There is mild bilateral facet joint osteoarthr itis. There is mild bilateral neural foraminal stenosis. There is mild central canal stenosis. L5-S1: The disc is bulging and has an annular fissure. There is severe right and mild left facet join t osteoarthritis. There is mild bilateral neural foraminal stenosis. There is mild central canal sten osis. IMPRESSION: 1. Severe lumbar spondylosis. Reviewed, dictated and finalized at location E.
== END 2023-12-21 09:44 ==
PROVIDERS: PCP Nurse Practitioner; Visit Provider Student in an Organized Health Care Education/Training Program
DX: G62.9 Polyneuropathy, unspecified (principal); M48.02 Spinal stenosis, cervical region; M47.892 Other spondylosis, cervical region; M47.896 Other spondylosis, lumbar region
CPT/HCPCS: 72141; 72148

== ENCOUNTER 2024-07-16 11:32 | Emergency (ER) | payer OTHER, SELFPAY ==
--- NOTE | ~2024-07-16 | XR_ITS ---
XR chest 2V DATE: 07/16/2024 12:51 INDICATION: Chest pressure TECHNIQUE: PA and lateral views COMPARISON: 10/20/2023 CT chest /09/2023 2 view chest FINDINGS: Normal heart size. No hilar or mediastinal enlargement. No pulmonary infiltrate or consolidation, pleural effusion or pulmonary vascular congestion or pneumo thorax is detected. There is degenerative spurring of the thoracic spine. IMPRESSION: No active cardiopulmonary disease Reviewed, dictated and finalized at location A. [facility] [employer]
--- NOTE | 2024-07-16 11:35 | ECG_ITS ---
Test Date: 2024-07-16 11:44:47 Measurements Intervals [place] Rate: 85 P: 40 [place]: 160 QRS: -59 QRSD: 85 T: 10 QT: 354 QTc: 423 Interpretive Statements SINUS RHYTHM S1-S2-S3 PATTERN, CONSISTENT WITH PULMONARY DISEASE, RVH, OR NORMAL VARIANT LEFT ANTERIOR FASCICULAR BLOCK [QRS AXIS <= -45, QR IN I, RS IN II] POSSIBLE ANTERIOR MYOCARDIAL INFARCTION , PROBABLY OLD [30 ms Q WAVE IN V3/V4, OR R < 0.2 mV IN V4] ABNORMAL ECG No previous ECG available for comparison Electronically Signed On 07-16-2024 17:38:09 [employer] WORK[employer] by Werner Rowell M.D.
[2024-07-16 11:53] VITALS: BP 128/69; PULSE 89; RESP 17; TEMP 36.8; O2SAT 98
[2024-07-16 12:06] LABS: Basophils Absolute Auto 0.1 K/mm3 (0.0-0.1); Basophils Percent Auto 0.8 % (0.2-1.2); Eosinophils Absolute Auto 0.1 K/mm3 (0-0.3); Eosinophils Percent Auto 0.8 % (0-4.4); Hematocrit 44.6 % (37.0-47.0); Immature Granulocyte Absolute 0.03 K/mm3 (0.00-0.031); Immature Granulocyte Percent A 0.3 % (0-0.5); Lymphocytes Absolute Auto 1.38 K/mm3 (0.9-3.2); Lymphocytes Percent Auto 14.6 % (18.3-44.2); Mean Corpuscular HGB Conc 33.6 g/dl (32-36); Mean Corpuscular Hemoglobin 30.2 pg (26-34); Mean Corpuscular Volume 89.7 fl (80-100); Mean Platelet Volume 10.7 fl (7.4-10.4); Monocytes Absolute Auto 0.6 K/mm3 (0.1-0.6); Neutrophils Absolute Auto 7.3 K/mm3 (1.3-6.7); Neutrophils Percent Auto 77.5 % (45.5-73.1); Platelet Count Result 303 k/mm3 (150-375); Red Blood Count 4.97 M/mm3 (4.2-5.4); Red Cell Distribution Width 13.8 % (11.5-14.5); White Blood Count 9.5 K/mm3 (4.5-10.0)
[2024-07-16 12:26] LABS: Alanine Aminotransferase 23 U/L (6-35); Albumin Level 4.5 g/dL (3.5-5.1); Alkaline Phosphatase 72 U/L (38-126); Anion Gap 11 mmol/L (4-12); Aspartate Amino Transferase 24 U/L (14-36); Bilirubin,Total 0.7 mg/dL (0.2-1.3); Blood Urea Nitrogen 11 mg/dL (7-17); Calcium 9.7 mg/dL (8.4-10.2); Carbon Dioxide 24 mmol/L (22-30); Chloride 104 mmol/L (98-107); Estimated CRCL calculation 98 ml/min; Estimated Glomerular Filt Rate > 60; Glucose 112 mg/dL (65-110); INR 1.1; Lipase 46 U/L (23-300); Prothrombin Time 14.2 Seconds (11.1-14.7); Sodium 139 mmol/L (137-145)
[2024-07-16 12:38] LABS: Troponin I < 0.012 ng/mL (0.000-0.034)
--- NOTE | 2024-07-16 15:19 | ED.CHESTPAIN ---
HPI - Chest Pain General Chief Complaint: Chest Pain <Brianne Barba PA-C - Last Filed: 07/17/24 16:13> Stated Complaint: ELEVATED BP,CHEST PRESSURE,DIZZY SINCE LAST HS <Brianne Barba PA-C - Last Filed: 07/17/24 16:13> Time Seen by Provider: 07/16/24 15:19 <Brianne Barba PA-C - Last Filed: 07/17/24 16:13> Focused HPI: This is a 59 year old female that presents to the ER for dizziness (lightheadedness). Reports associated nausea, palpitations. Reports ongoing since last night. Reports her blood pressure was elevated as well. She took an extra dose of her blood pressure medication (Amlodipine) last night and this morning as well. Reports some chest pressure/burning pain. Denies shortness of breath or lower extremity edema. GENERAL: Well-appearing, well-nourished, and in no acute distress. HEAD: Normocephalic, atraumatic. CHEST: Clear to auscultation. ?No respiratory distress. HEART: Regular rate and rhythm.? NEURO: ?Alert and oriented x3. Patient screened in triage and initial orders placed.? ?Additional care and disposition to be based upon?diagnostic testing and treatment. <Brianne Barba PA-C - Last Filed: 07/17/24 16:13> History of Present Illness HPI narrative: Agree with the HPI narrative as above <Nick Fall MD - Last Filed: 07/16/24 21:13> Related Data Home Medications: Home Medications ?Medication ?Instructions ?Recorded ?Confirmed ?Last Taken ?Type albuterol sulfate 90 mcg/actuation 1 inh inhalation Q6-8H PRN 11/04/23 03/30/24 Unknown History aerosol inhaler estradiol 0.01% (0.1 mg/gram) 1 appful vaginal DAILY 06/07/24 06/07/24 Unknown History vaginal cream gabapentin 600 mg tablet 600 mg PO DAILY 06/07/24 06/07/24 Unknown History <rBianne Barba PA-C - Last Filed: 07/17/24 16:13> Allergies/Adverse Reactions: Allergies Allergy/AdvReac Type Severity Reaction Status Date / Time blue dye Allergy Unknown RASH Verified 07/16/24 15:53 hydrocodone Allergy Unknown RASH, HIVES Verified 07/16/24 15:53 oxycodone Allergy Unknown RASH Verified 07/16/24 15:53 Penicillins Allergy Unknown Skin Verified 07/16/24 15:53 Reaction Sulfa (Sulfonamide Allergy Unknown Skin Verified 07/16/24 15:53 Antibiotics) Reaction tetracycline Allergy Unknown Skin Verified 07/16/24 15:53 Reaction tramadol Allergy Rash Verified 07/16/24 15:53 <Brianne Barba PA-C - Last Filed: 07/17/24 16:13> Review of Systems Review of Systems: As reviewed above <Nick Fall MD - Last Filed: 07/16/24 21:13> [facility] Past Medical History Medical History: Medical History ELISABETH (obstructive sleep apnea) Trigger finger right second and third digits Arthritis Asthma <Brianne Barba PA-C - Last Filed: 07/17/24 16:13> Surgical History Surgical History: Surgical History History of surgery on wrist H/O: hysterectomy (~2016) H/O dilation and curettage 1999 History of hip replacement right, 2017, Dr. Jackson Left, 2018, Dr. Jackson H/O hand surgery left, 2013, Dr. Jackson <Brianne Barba PA-C - Last Filed: 07/17/24 16:13> Family History Family History: Family History Father Hypertension Family history of elevated blood lipids Family history of osteoarthritis Mother Hypertension Family history of allergic disorder Asthma Patient's mother is in good health Sibling Asthma Family history of allergic disorder Hypertension Patient's sister is in good health Father Hypertension Mother Hypertension Thyroid disorder Sibling Asthma Sibling Asthma Other Depression <Brianne Barba PA-C - Last Filed: 07/17/24 16:13> Social History Social History: Social History Social History: Caffeine-coffee/tea daily Smoking status: Never smoker Second hand tobacco smoke exposure: No Alcohol intake: current Drinks per week: 7 Alcohol use details: wine/hard liquor Substance use: never Substance use type: does not use Current Housing: Decline to Answer Concerned About Future Housing: Decline to Answer Difficulty Paying Gas/Electric Bills: Decline to Answer Difficulty Paying for Meds: Decline to Answer Currently Unemployed: Decline to Answer Education: Decline to Answer Difficulty w/ Childcare or Family Care: Decline to Answer Living arrangements: with family Occupation/Education: retired 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 Mucous membranes moist. NECK: Supple. CHEST: [Clear to auscultation. No respiratory distress.] HEART: [Regular rate and rhythm]. No murmur heard. [Normal peripheral pulses.] ABDOMEN: [Soft, nondistended], [nontender], [No rigidity or guarding] EXTREMITIES: Normal range of motion. [No edema.] SKIN: Warm, dry, no rash. NEURO: [No focal deficits]. Alert and oriented [x3.] PSYCH: [Normal mood and affect.] <Nick Fall MD - Last Filed: 07/16/24 21:13> Course Vital Signs Vital signs: Vital Signs Temperature 98.3 F 07/16/24 11:53 Pulse Rate 89 07/16/24 11:53 Respiratory Rate 17 07/16/24 11:53 Blood Pressure 128/69 07/16/24 11:53 Pulse Oximetry 98 07/16/24 11:53 Oxygen Delivery Room Air 07/16/24 11:53 Temperature 98.3 F 07/16/24 11:53 Pulse Rate 67 07/16/24 17:38 Respiratory Rate 15 07/16/24 17:38 Blood Pressure 151/82 H 07/16/24 17:38 Pulse Oximetry 95 07/16/24 17:38 Oxygen Delivery Room Air 07/16/24 15:50 <Brianne Barba PA-C - Last Filed: 07/17/24 16:13> Vital Signs Temperature 98.3 F 07/16/24 11:53 Pulse Rate 89 07/16/24 11:53 Respiratory Rate 17 07/16/24 11:53 Blood Pressure 128/69 07/16/24 11:53 Pulse Oximetry 98 07/16/24 11:53 Oxygen Delivery Room Air 07/16/24 11:53 Temperature 98.3 F 07/16/24 11:53 Pulse Rate 67 07/16/24 17:38 Respiratory Rate 15 07/16/24 17:38 Blood Pressure 151/82 H 07/16/24 17:38 Pulse Oximetry 95 07/16/24 17:38 Oxygen Delivery Room Air 07/16/24 15:50 <Nick Fall MD - Last Filed: 07/16/24 21:13> MDM - Chest Pain MDM Narrative Medical decision making narrative: 59-year-old female with history of chronic hypertension on amlodipine therapy presenting to the emergency department with vague complaints. Patient states that she had a head pressure, dizziness and nauseousness that have since resolved. On my examination patient has no symptoms whatsoever, denies any fever, chills, chest pain, chest pressure, difficulty breathing. She is currently on Tamiflu as her daughter has influenza A. Patient is afebrile. She otherwise appears well, has strong symmetric pulses in all limbs, clear breath sounds throughout, no complaints at this time. Cardiac workup was ordered given her risk factors and elevated blood pressure readings at home. Workup shows no leukocytosis or anemia. Troponin is negative x2. Electrolytes within normal limits, normal renal and hepatic function panel. Glucose normal 112. Chest x-ray shows no acute process. EKGs are nonischemic, show pulmonary pattern of disease but no acute process. Patient presently is asymptomatic, has reassuring workup and stable for discharge with regular primary care provider follow-up. We discussed the need for outpatient titration of her blood pressure medications and she verbalized understanding and close follow-up. Patient was also given strict return precautions. <Nick Fall MD - Last Filed: 07/16/24 21:13> Medical Records Data Attestation: I reviewed the patient's medical records. <Nick Fall MD - Last Filed: 07/16/24 21:13> Lab Data Attestation: I reviewed the patient's lab results. <Nick Fall MD - Last Filed: 07/16/24 21:13> Result diagrams: 07/16/24 12:02 07/16/24 12:02 <Brianne Barba PA-C - Last Filed: 07/17/24 16:13> Labs: Lab Results 07/16/24 07/16/24 Range/Units 12:02 15:44 WBC 9.5 (4.5-10.0) K/mm3 RBC 4.97 (4.2-5.4) M/mm3 Hgb 15.0 (12.0-15.0) g/dL Hct 44.6 (37.0-47.0) % MCV 89.7 (80-100) fl MCH 30.2 (26-34) pg MCHC 33.6 (32-36) g/dl RDW 13.8 (11.5-14.5) % Plt Count 303 (150-375) k/mm3 MPV 10.7 H (7.4-10.4) fl Immature Gran % (Auto) 0.3 (0-0.5) % Neut % (Auto) 77.5 H (45.5-73.1) % Lymph % (Auto) 14.6 L (18.3-44.2) % [place] % (Auto) 6.0 (2.6-8.5) % Eos % (Auto) 0.8 (0-4.4) % Baso % (Auto) 0.8 (0.2-1.2) % Lymph # (Auto) 1.38 (0.9-3.2) K/mm3 [place] # (Auto) 0.6 (0.1-0.6) K/mm3 Eos # (Auto) 0.1 (0-0.3) K/mm3 Baso # (Auto) 0.1 (0.0-0.1) K/mm3 Abs Immat Gran (auto) 0.03 (0.00-0.031) K/mm3 Absolute Neuts (auto) 7.3 H (1.3-6.7) K/mm3 Absolute Nucleated RBC 0.000 (0.0-0.012) K/mm3 Nucleated RBC % 0.0 (0.0-0.2) % PT 14.2 (11.1-14.7) Seconds INR 1.1 APTT 26.0 (22.3-36.8) Seconds D-Dimer 0.41 (<0.48) ug/mL Sodium 139 (137-145) mmol/L Potassium 4.0 (3.4-5.0) mmol/L Chloride 104 (98-107) mmol/L Carbon Dioxide 24 (22-30) mmol/L Anion Gap 11 (4-12) mmol/L BUN 11 (7-17) mg/dL Creatinine 0.72 (0.7-1.0) mg/dL Estim Creat Clear Calc 98 ml/min Estimated GFR > 60 (59 - ) Glucose 112 H (65-110) mg/dL Calcium 9.7 (8.4-10.2) mg/dL Total Bilirubin 0.7 (0.2-1.3) mg/dL AST 24 (14-36) U/L ALT 23 (6-35) U/L Alkaline Phosphatase 72 (38-126) U/L Troponin I < 0.012 < 0.012 (0.000-0.034) ng/mL Total Protein 8.0 (6.3-8.2) g/dL Albumin 4.5 (3.5-5.1) g/dL Lipase 46 (23-300) U/L <Brianne Barba PA-C - Last Filed: 07/17/24 16:13> Lab Results 07/16/24 07/16/24 Range/Units 12:02 15:44 WBC 9.5 (4.5-10.0) K/mm3 RBC 4.97 (4.2-5.4) M/mm3 Hgb 15.0 (12.0-15.0) g/dL Hct 44.6 (37.0-47.0) % MCV 89.7 (80-100) fl MCH 30.2 (26-34) pg MCHC 33.6 (32-36) g/dl RDW 13.8 (11.5-14.5) % Plt Count 303 (150-375) k/mm3 MPV 10.7 H (7.4-10.4) fl Immature Gran % (Auto) 0.3 (0-0.5) % Neut % (Auto) 77.5 H (45.5-73.1) % Lymph % (Auto) 14.6 L (18.3-44.2) % [place] % (Auto) 6.0 (2.6-8.5) % Eos % (Auto) 0.8 (0-4.4) % Baso % (Auto) 0.8 (0.2-1.2) % Lymph # (Auto) 1.38 (0.9-3.2) K/mm3 [place] # (Auto) 0.6 (0.1-0.6) K/mm3 Eos # (Auto) 0.1 (0-0.3) K/mm3 Baso # (Auto) 0.1 (0.0-0.1) K/mm3 Abs Immat Gran (auto) 0.03 (0.00-0.031) K/mm3 Absolute Neuts (auto) 7.3 H (1.3-6.7) K/mm3 Absolute Nucleated RBC 0.000 (0.0-0.012) K/mm3 Nucleated RBC % 0.0 (0.0-0.2) % PT 14.2 (11.1-14.7) Seconds INR 1.1 APTT 26.0 (22.3-36.8) Seconds D-Dimer 0.41 (<0.48) ug/mL Sodium 139 (137-145) mmol/L Potassium 4.0 (3.4-5.0) mmol/L Chloride 104 (98-107) mmol/L Carbon Dioxide 24 (22-30) mmol/L Anion Gap 11 (4-12) mmol/L BUN 11 (7-17) mg/dL Creatinine 0.72 (0.7-1.0) mg/dL Estim Creat Clear Calc 98 ml/min Estimated GFR > 60 (59 - ) Glucose 112 H (65-110) mg/dL Calcium 9.7 (8.4-10.2) mg/dL Total Bilirubin 0.7 (0.2-1.3) mg/dL AST 24 (14-36) U/L ALT 23 (6-35) U/L Alkaline Phosphatase 72 (38-126) U/L Troponin I < 0.012 < 0.012 (0.000-0.034) ng/mL Total Protein 8.0 (6.3-8.2) g/dL Albumin 4.5 (3.5-5.1) g/dL Lipase 46 (23-300) U/L <Nick Fall MD - Last Filed: 07/16/24 21:13> Imaging Data Attestation: I personally reviewed and interpreted this imaging study as follows: <Nick Fall MD - Last Filed: 07/16/24 21:13> My impression: Impressions Chest X-Ray 07/16/24 13:13 IMPRESSION: No active cardiopulmonary disease <Nick Fall MD - Last Filed: 07/16/24 21:13> Critical Care Time Critical Care Time Critical Care Time: No <Brianne Barba PA-C - Last Filed: 07/17/24 16:13> Discharge Plan Discharge Clinical Impression: Asymptomatic hypertension, Chronic hypertension <Brianne Barba PA-C - Last Filed: 07/17/24 16:13> Patient Disposition: Home, Self-Care <Brianne Barba PA-C - Last Filed: 07/17/24 16:13> Condition: Stable <Brianne Barba PA-C - Last Filed: 07/17/24 16:13> Instructions: Antibiotic Form, Chronic Hypertension (DC) <Brianne Barba PA-C - Last Filed: 07/17/24 16:13> Additional Instructions: Your workup appears very reassuring, no ongoing heart damage, no liver or kidney damage, no lung injury or any kind of pneumonia. Your blood pressure was slightly elevated but not concerning in the acute setting. Follow-up with your regular doctor for titration of your blood pressure medications. Your blood pressure could also be elevated secondary to other factors such as environmental or physical/social stresses. Keep a blood pressure diary at home and log them frequently. Follow-up with your regular doctor, if you exhibited any new or worsening concerns you could always get repeat evaluation in the ER. <Brianne Barba PA-C - Last Filed: 07/17/24 16:13> Patient Language: Citizen Of [place] <Brianne Barba PA-C - Last Filed: 07/17/24 16:13> Prescriptions: No Action albuterol sulfate 90 mcg/actuation HFA aerosol inhaler 1 inh inhalation Q6-8H PRN gabapentin 600 mg tablet 600 mg PO DAILY estradiol 0.01 % (0.1 mg/gram) cream 1 appful vaginal DAILY Rx Instructions: for 14 days albuterol sulfate 2.5 mg /3 mL (0.083 %) solution for nebulization 2.5 mg inhalation Q4-6H PRN (Reason: shortness of breath or wheezing) Qty: 75 0RF amlodipine 2.5 mg tablet See Rx Instructions .ROUTE .COMPLEX Qty: 90 3RF Dose Instruction: TAKE 1 TABLET BY MOUTH EVERY DAY WITH THE 5MG Rx Instructions: TAKE 1 TABLET BY MOUTH EVERY DAY WITH THE 5MG. amlodipine 5 mg tablet See Rx Instructions .ROUTE .COMPLEX Qty: 90 3RF Dose Instruction: TAKE 1 TABLET BY MOUTH DAILY WITH A 2.5 MG TABLET FOR A TOTAL OF 7.5 MG DAILY Rx Instructions: TAKE 1 TABLET BY MOUTH DAILY WITH A 2.5 MG TABLET FOR A TOTAL OF 7.5 MG DAILY pregabalin [Lyrica] 75 mg capsule See Rx Instructions .ROUTE .COMPLEX Qty: 120 2RF Rx Instructions: Take 2 capsules in the morning and 2 capsule at bedtime azelastine 137 mcg (0.1 %) spray,non-aerosol See Rx Instructions .ROUTE .COMPLEX Qty: 90 3RF Dose Instruction: USE 1 SPRAY INTRANASALLY EVERY 12 HOURS ADMINISTER INTO EACH NOSTRIL Rx Instructions: USE 1 SPRAY INTRANASALLY EVERY 12 HOURS ADMINISTER INTO EACH NOSTRIL alprazolam 0.25 mg tablet 0.25 mg PO DAILY PRN (Reason: anxiety) Qty: 30 0RF fluticasone furoate-vilanterol [Breo Ellipta] 100-25 mcg/dose blister with device See Rx Instructions .ROUTE .COMPLEX Qty: 60 5RF Dose Instruction: INHALE 1 PUFF DAILY Rx Instructions: INHALE 1 PUFF DAILY <Brianne Barba PA-C - Last Filed: 07/17/24 16:13> Follow-up/Referrals: Rojas,Kyra T., MEDICAL TRANSCRIPTION SUPERVISOR [Primary Care Provider] - <Brianne Barba PA-C - Last Filed: 07/17/24 16:13> Time of Disposition: 17:12 <Brianne Barba PA-C - Last Filed: 07/17/24 16:13> 17:12 <Nick Fall MD - Last Filed: 07/16/24 21:13>
--- NOTE | 2024-07-16 15:41 | ECG_ITS ---
Test Date: 2024-07-16 15:48:00 Measurements Intervals [place] Rate: 77 P: 5 PA: 126 QRS: -48 QRSD: 90 T: 4 QT: 377 QTc: 428 Interpretive Statements SINUS RHYTHM S1-S2-S3 PATTERN, CONSISTENT WITH PULMONARY DISEASE, RVH, OR NORMAL VARIANT LEFT ANTERIOR FASCICULAR BLOCK [QRS AXIS <= -45, QR IN I, RS IN II] POSSIBLE ANTERIOR MYOCARDIAL INFARCTION , OF INDETERMINATE AGE [30 ms Q WAVE IN V3/V4, OR R < 0.2 mV IN V4] NONSPECIFIC T-WAVE ABNORMALITY ABNORMAL ECG Electronically Signed On 07-16-2024 17:41:56 WIDTH STRIPPER by Werner Rowell M.D.
[2024-07-16 15:50] VITALS: PULSE 74; O2SAT 97
[2024-07-16 15:51] VITALS: BP 174/91; PULSE 79; RESP 19; O2SAT 96
[2024-07-16 16:01] LABS: D Dimer 0.41 ug/mL (<0.48)
[2024-07-16 16:13] LABS: Troponin I < 0.012 ng/mL (0.000-0.034)
[2024-07-16 17:38] VITALS: BP 151/82; PULSE 67; RESP 15; O2SAT 95
== END 2024-07-16 17:39 | disposition home or self-care (01) ==
PROVIDERS: Emergency Medicine; Emergency Provider Student in an Organized Health Care Education/Training Program; PCP Nurse Practitioner
DX: I10 Essential (primary) hypertension (principal)
CPT/HCPCS: 36415; 71046; 80053; 83690; 84484; 85025; 85380; 85610; 85730; 93005; 99284

== ENCOUNTER 2024-09-05 13:16 | Outpatient (CLI) | payer OTHER, SELFPAY | END 2024-09-05 13:17 | disposition home or self-care (01) | LOC: MICIMG 13:17 | PROVIDERS: PCP Nurse Practitioner; Visit Provider Obstetrics & Gynecology | DX: Z12.31 Encounter for screening mammogram for malignant neoplasm of breast (principal) | CPT/HCPCS: 77063; 77067 ==